=== PATIENT | female | born 1960 | race Caucasian/White ===

== ENCOUNTER 2019-08-26 09:29 | Emergency (ER) | payer OTHER ==
[~2019-08-26] VITALS: Ht 165.1 cm; Wt 79.4 kg
[2019-08-26] MEDS ORDERED: IBU800 MG PO (11:00)
[2019-08-26] MEDS ORDERED: CYCLOBENZAPRINE10 MG PO (11:00)
[2019-08-26] MEDS ORDERED: ROBAXIN-750750 MG PO (11:12)
== END 2019-08-26 11:25 | disposition home or self-care (01) ==
LOC: ED 09:29
DX: M54.5 Low back pain (principal); M25.521 Pain in right elbow; R51 Headache; Z88.0 Allergy status to penicillin; W00.1XXA Fall from stairs and steps due to ice and snow, initial encounter; Y93.01 Activity, walking, marching and hiking; Y92.098 Other place in other non-institutional residence as the place of occurrence of the external cause; Y99.8 Other external cause status